=== PATIENT | female | born 1960 | race Caucasian/White ===

== ENCOUNTER 2016-07-29 12:47 | Emergency (ER) | payer OTHER ==
[2016-07-29 13:48] VITALS: RESP 18; TEMP 98; O2SAT 97
--- NOTE | 2016-07-29 14:39 | EDPHY ---
H & P Time Seen by Provider: 07/29/16 13:31 HPI/ROS: This patient was doing yd work in her backyard and broke a large tree branch that subsequently caused her to lose her balance and then she sustained a laceration from the broken end of the branch to the left leg shortly prior to arrival. She is accompanied by her son and a friend. She reports moderate bleeding and pain from the incident. The bleeding slowed with direct pressure and stop. No exacerbating factors are noted. ROS: Musculoskeletal: No bony pain. No difficulty walking since the incident occurred Neuro: No numbness or tingling 5 point ROS is otherwise negative Past Medical/Surgical History: No pertinent past medical history. Smoking Status: Former smoker Physical Exam: Physical Exam Vital signs are normal. General: No acute distress Eyes: Pupils equal and react to light. Extraocular motions are intact. Cardiac: Brisk capillary refill is intact throughout. Pulses are 2+ and symmetric in the affected extremity. Skin: No rash or pallor. Patient has a 7 cm v-shaped laceration to the left anterior leg. Subcutaneous tissue is exposed. No foreign bodies are evident on direct inspection. There is minimal bleeding. The wound is gaping open by 1.5 cm. Extremities: No bony tenderness the left leg. Neuro: Alert with no sensorimotor deficits to the affected extremity. Constitutional: Initial Vital Signs Temperature (C) 36.6 C 07/29/16 12:57 Heart Rate 100 07/29/16 12:57 Respiratory Rate 18 07/29/16 12:57 Blood Pressure 150/100 H 07/29/16 12:57 O2 Sat (%) 97 07/29/16 12:57 O2 Delivery Mode Room Air Allergies/Adverse Reactions: No Known Allergies Allergy (Verified 07/12/13 13:42) Home Medications: Medication Instructions Recorded ALBUTEROL SULFATE 06/04/09 Aspirin 81mg 06/04/09 Levothyroxine 175 mcg PO DAILY 06/04/09 SPIRIVA 06/04/09 Symbicort 80/4.5 Inh 2 puffs PO BID 06/04/09 ZYRTEC 10 mg PO DAILY 06/04/09 Allergy Shots 07/12/13 Lipitor 10 mg (RX) 07/12/13 Prevacid 07/12/13 Xolair 07/12/13 Methyfolate 07/29/16 MDM/Departure - MDM Procedures: The wound is 7 [id number]. The wound was copiously irrigated with saline. The wound was explored for foreign bodies and none were found. The wound was prepped and draped in the normal sterile fashion. The wound was anesthetized using let solution followed by 50 50 mix of 0.5% Marcaine and 1% plain lidocaine, 27 gauge needle-8 mL with good effect. The edges were reapproximated using 4 0 Prolene on a P3 needle-1 interrupted suture at 21 running sutures with good hemostasis and cosmesis. The patient tolerated the procedure well. There were no complications. We counseled patient regarding wound care ED Course/Re-evaluation: Discussion: Uncomplicated simple leg laceration. No evidence of foreign body on direct examination, no evidence of bony injury or deeper structure injuries. - Depart Disposition: Home, Routine, Self-Care Clinical Impression: Leg laceration Qualifiers: Encounter type: initial encounter Laterality: left Qualified Code(s): S81.812A - Laceration without foreign body, left lower leg, initial encounter Condition: Good Instructions: Care For Your Stitches (ED) Additional Instructions: Diagnosis: Leg laceration Plan: Keep the wound clean and dry for the next 2 days then clean daily with warm soapy water Ibuprofen Tylenol for discomfort if needed Return for suture removal in 10-12 days Return sooner if he develops redness, discharge or other concerns for infection. Referrals: AMANDA FLYNN [Primary Care Provider] - As per Instructions
[2016-07-29 15:03] VITALS: BP 122/74; PULSE 74
== END 2016-07-29 15:02 | disposition home or self-care (01) ==
LOC: CED 12:47
PROC: 0HQLXZZ Repair Left Lower Leg Skin, External Approach (ICD-10-PCS; principal; 2016-07-29)
DX: S81.812A Laceration without foreign body, left lower leg, initial encounter (principal); Z79.82 Long term (current) use of aspirin; Z87.891 Personal history of nicotine dependence; W22.8XXA Striking against or struck by other objects, initial encounter; Y92.007 Garden or yard of unspecified non-institutional (private) residence as the place of occurrence of the external cause

== ENCOUNTER → 2016-11-27 | Outpatient (CLI) | payer OTHER | LOC: BRMIMAGING 13:32 | PROVIDERS: ATTEND Family Medicine | DX: Z12.31 Encounter for screening mammogram for malignant neoplasm of breast (principal) | CPT/HCPCS: G0202 ==

== ENCOUNTER → 2016-12-06 | Outpatient (CLI) | payer OTHER | LOC: BRMIMAGING 09:47 | PROVIDERS: ATTEND Family Medicine | DX: R92.8 Other abnormal and inconclusive findings on diagnostic imaging of breast (principal) | CPT/HCPCS: 76641-PO; G0206 ==

== ENCOUNTER → 2017-01-13 | Outpatient (CLI) | payer OTHER ==
[~2017-01-13] MED LIST: BUPIVACAINE 0.5% 10 ML SDV ONE; LIDOCAINE 1% 300 MG/30 ML SDV ONE; THROMBIN (BOVINE) 5,000 UNIT VIAL TP ONE
== END ==
LOC: FIMAGING 07:07
PROVIDERS: ATTEND Family Medicine
PROC: 0HBT3ZX Excision of Right Breast, Percutaneous Approach, Diagnostic (ICD-10-PCS; principal; 2017-01-13)
DX: N60.11 Diffuse cystic mastopathy of right breast (principal)
CPT/HCPCS: G0206

== ENCOUNTER → 2017-07-16 | Outpatient (CLI) | payer OTHER | LOC: CIMAGING 12:45 | PROVIDERS: ATTEND Physician Assistant | DX: N60.11 Diffuse cystic mastopathy of right breast (principal); R92.8 Other abnormal and inconclusive findings on diagnostic imaging of breast ==

== ENCOUNTER → 2017-07-28 | Outpatient (CLI) | payer OTHER | LOC: CIMAGING 13:26 | PROVIDERS: ATTEND Physician Assistant | DX: N60.11 Diffuse cystic mastopathy of right breast (principal) | CPT/HCPCS: 76641-PO ==

== ENCOUNTER → 2017-11-27 | Outpatient (CLI) | payer OTHER | LOC: CIMAGING 10:33 | PROVIDERS: ATTEND Physician Assistant | DX: Z12.31 Encounter for screening mammogram for malignant neoplasm of breast (principal) ==

== ENCOUNTER → 2018-01-07 | Outpatient (CLI) | payer OTHER | LOC: BRMIMAGING 09:12 | PROVIDERS: ATTEND Physician Assistant | DX: N60.01 Solitary cyst of right breast (principal) | CPT/HCPCS: 76641-PO ==